=== PATIENT | male | born 1965 | race Caucasian/White ===

== ENCOUNTER 2017-02-07 02:45 | Emergency (ER) | payer SELFPAY ==
[2017-02-07] MEDS ORDERED: Morphine 4 MG/ML Syringe IVPUSH PRN (03:03)
[2017-02-07] MEDS ORDERED: Nitroglycerin 0.4 MG Tab.SL SL PRN (03:03)
[2017-02-07] MEDS ORDERED: Sodium Chloride 0.9% 10 ML Syringe FLUSH PRN (03:03)
--- NOTE | 2017-02-07 03:10 | EDM.PDOC ---
ED HISTORY OF PRESENT ILLNESS - General Chief Complaint: Chest Pain Stated Complaint: CHEST PAINS Time Seen by Provider: 02/07/17 03:02 Source: Reports: Patient, RN notes reviewed History Limitations: Reports: No limitations - History of Present Illness INITIAL COMMENTS - FREE TEXT/NARRATIVE: 51-year-old gentleman presents emergency department day complaint of chest pain , he's had chest pain for several days does come and go pain is definitely worse when he exerts himself does get relieved by rest pain can come on at rest does have shortness of breath, positive for tobacco use positive for family history of father with coronary artery disease in his 70s - Related Data Allergies/ADRs: Allergies Allergy/AdvReac Type Severity Reaction Status Date / Time No Known Allergies Allergy Verified 02/07/17 03:03 Home Meds: Home Meds NK [No Known Home Meds] 02/07/17 [History] Past Medical History - Past Health History Medical/Surgical History: Denies Medical/Surgical History Social & Family History - Family History Cardiac: Reports: CAD - Tobacco Use Smoking Status *Q: Current Some Day Smoker ED ROS GENERAL - Review of Systems Review Of Systems: See Below Constitutional: Reports: no symptoms. Denies: diaphoresis HEENT: Reports: No symptoms Respiratory: Reports: Shortness of Breath Cardiovascular: Reports: Chest pain, Dyspnea on exertion GI/Abdominal: Reports: No symptoms. Denies: Nausea, Vomiting : Reports: no symptoms Musculoskeletal: Reports: no symptoms Skin: Reports: no symptoms Neurological: Reports: No Symptoms ED EXAM, GENERAL - Physical Exam Exam: See Below Free Text/Narrative:: General: Male, not in any distress, alert and oriented x3 HEENT: head is atraumatic normocephalic, eyes pupils equal round reactive to light, sclera clear no conjunctivitis appreciated. Ears tympanic membranes clear and marie landmarks and light reflex are present bilaterally canals are clear. Nose no septal deviation, nares are clear, no blood present. Mouth mucosa is moist and pink no erythema or exudate noted in soft palate, tongue is midline uvula is midline, dentition is intact. Neck: Supple no thyromegaly no tracheal deviation. Nodes: Cervical nodes subclavicular nodes nontender no palpable lymphadenopathy noted. Lungs: clear to auscultation bilaterally with symmetrical respirations, no adventitious noise appreciated. CV: Regular rate and rhythm S1 and S2 appreciated no murmurs rubs or gallops noted. Tender to palpation on the anterior chest Abdomen: Soft, nontender, no palpable masses or organomegaly appreciated, no distention no guarding bowel sounds are present, . Neuro: Cranial nerves II through XII grossly intact Skin: Warm and dry, intact Extremities: No lower extremity edema appreciated, . Course - Vital Signs Last Recorded V/S: Last Vital Signs Temp 97.3 F 02/07/17 02:57 Pulse 78 02/07/17 05:19 Resp 15 02/07/17 05:19 BP 134/95 H 02/07/17 05:19 Pulse Ox 97 02/07/17 05:19 - Orders/Labs/Meds Orders: Active Orders 24 hr Category Date Time Status Cardiac Monitoring [RC] .As Directed Care 02/07/17 03:04 Active EKG Documentation Completion [RC] ASDIRECTED Care 02/07/17 03:05 Active Peripheral IV Care [RC] . DIRECTED Care 02/07/17 03:05 Active Chest 1V Frontal [CR] Stat Exams 02/07/17 03:05 Taken Morphine Med 02/07/17 03:03 Active See Dose Instructions IVPUSH ASDIRECTED PRN Nitroglycerin [Nitrostat] Med 02/07/17 03:03 Active 0.4 mg SL Q5M PRN Sodium Chloride 0.9% [Saline Flush] Med 02/07/17 03:03 Active 10 ml FLUSH ASDIRECTED PRN ED Pain Medications Reflex [OM.PC] Stat Oth 02/07/17 03:04 Ordered Peripheral IV Insertion Adult [OM.PC] Stat Oth 02/07/17 03:03 Ordered Saline Lock Insert [OM.PC] Stat Oth 02/07/17 03:03 Ordered EKG 12 Lead [EK] Stat Ther 02/07/17 03:04 Ordered Medication Orders Morphine Sulfate (Morphine) 0 mg IVPUSH ASDIRECTED PRN PRN Reason: Pain Stop: 02/08/17 03:05 Last Admin: 02/07/17 03:10 Dose: 4 mg Nitroglycerin (Nitrostat) 0.4 mg SL Q5M PRN PRN Reason: Chest Pain Stop: 02/08/17 03:04 Sodium Chloride (Saline Flush) 10 ml FLUSH ASDIRECTED PRN PRN Reason: Keep Vein Open Last Admin: 02/07/17 03:13 Dose: 10 ml Labs: Laboratory Tests 02/07/17 02/07/17 02/07/17 Range/Units 03:03 03:03 03:03 WBC 10.6 (4.5-11.0) K/uL RBC 5.43 (4.30-5.90) M/uL Hgb 16.1 H (12.0-15.0) g/dL Hct 48.7 (40.0-54.0) % MCV 90 (80-98) fL MCH 30 (27-31) pg MCHC 33 (32-36) % Plt Count 271 (150-400) K/uL Neut % (Auto) 61 (36-66) % Lymph % (Auto) 24 (24-44) % Owsley % (Auto) 11 H (2-6) % Eos % (Auto) 3 (2-4) % Baso % (Auto) 1 (0-1) % PT 9.8 (9.5-12.0) sec INR 0.93 (0.80-1.20) APTT 25.4 L (27.0-36.0) sec Sodium 137 L (140-148) mmol/L Potassium 3.9 (3.6-5.2) mmol/L Chloride 104 (100-108) mmol/L Carbon Dioxide 30 (21-32) mmol/L Anion Gap 6.9 (5.0-14.0) mmol/L BUN 19 H (7-18) mg/dL Creatinine 1.3 (0.8-1.3) mg/dL Est Cr Clr Drug Dosing 70.97 mL/min Estimated GFR (MDRD) 59 L (>60) Glucose 98 (74-106) mg/dL Calcium 8.4 L (8.5-10.1) mg/dL Total Bilirubin 0.4 (0.2-1.0) mg/dL AST 19 (15-37) U/L ALT 54 (12-78) U/L Alkaline Phosphatase 73 (46-116) U/L Troponin I < 0.017 (0.000-0.056) ng/mL Total Protein 6.7 (6.4-8.2) g/dL Albumin 3.4 (3.4-5.0) g/dL Globulin 3.3 (2.3-3.5) g/dL Albumin/Globulin Ratio 1.0 L (1.2-2.2) 02/07/17 Range/Units 05:16 WBC (4.5-11.0) K/uL RBC (4.30-5.90) M/uL Hgb (12.0-15.0) g/dL Hct (40.0-54.0) % MCV (80-98) fL MCH (27-31) pg MCHC (32-36) % Plt Count (150-400) K/uL Neut % (Auto) (36-66) % Lymph % (Auto) (24-44) % Ows[place] % (Auto) (2-6) % Eos % (Auto) (2-4) % Baso % (Auto) (0-1) % PT (9.5-12.0) sec INR (0.80-1.20) APTT (27.0-36.0) sec Sodium (140-148) mmol/L Potassium (3.6-5.2) mmol/L Chloride (100-108) mmol/L Carbon Dioxide (21-32) mmol/L Anion Gap (5.0-14.0) mmol/L BUN (7-18) mg/dL Creatinine (0.8-1.3) mg/dL Est Cr Clr Drug Dosing mL/min Estimated GFR (MDRD) (>60) Glucose (74-106) mg/dL Calcium (8.5-10.1) mg/dL Total Bilirubin (0.2-1.0) mg/dL AST (15-37) U/L ALT (12-78) U/L Alkaline Phosphatase (46-116) U/L Troponin I < 0.017 (0.000-0.056) ng/mL Total Protein (6.4-8.2) g/dL Albumin (3.4-5.0) g/dL Globulin (2.3-3.5) g/dL Albumin/Globulin Ratio (1.2-2.2) Meds: Medications Generic Name Dose Route Start Last Admin Trade Name Freq PRN Reason Stop Dose Admin Morphine Sulfate 0 mg 02/07/17 03:03 02/07/17 03:10 Morphine IVPUSH 02/08/17 03:05 4 mg ASDIRECTED PRN Administration Pain Nitroglycerin 0.4 mg 02/07/17 03:03 Nitrostat SL 02/08/17 03:04 Q5M PRN Chest Pain Sodium Chloride 10 ml 02/07/17 03:03 02/07/17 03:13 Saline Flush FLUSH 10 ml ASDIRECTED PRN Administration Keep Vein Open Departure - Departure Time of Disposition: 06:06 Disposition: Home, Self-Care 01 Condition: good Clinical Impression: Acute chest wall pain Forms: ED Department Discharge Additional Instructions: Use ibuprofen as needed for pain control, Please followup with your primary care provider in 3-5 days if not better, please call return to the emergency department with worsening of symptoms. - My Orders Last 24 Hours: My Active Orders 02/07/17 03:03 Morphine See Dose Instructions IVPUSH ASDIRECTED PRN Nitroglycerin [Nitrostat] 0.4 mg SL Q5M PRN Sodium Chloride 0.9% [Saline Flush] 10 ml FLUSH ASDIRECTED PRN Peripheral IV Insertion Adult [OM.PC] Stat Saline Lock Insert [OM.PC] Stat 02/07/17 03:04 Cardiac Monitoring [RC] .As Directed ED Pain Medications Reflex [OM.PC] Stat EKG 12 Lead [EK] Stat 02/07/17 03:05 EKG Documentation Completion [RC] ASDIRECTED Peripheral IV Care [RC] . DIRECTED Chest 1V Frontal [CR] Stat - Assessment/Plan Last 24 Hours: My Active Orders 02/07/17 03:03 Morphine See Dose Instructions IVPUSH ASDIRECTED PRN Nitroglycerin [Nitrostat] 0.4 mg SL Q5M PRN Sodium Chloride 0.9% [Saline Flush] 10 ml FLUSH ASDIRECTED PRN Peripheral IV Insertion Adult [OM.PC] Stat Saline Lock Insert [OM.PC] Stat 02/07/17 03:04 Cardiac Monitoring [RC] .As Directed ED Pain Medications Reflex [OM.PC] Stat EKG 12 Lead [EK] Stat 02/07/17 03:05 EKG Documentation Completion [RC] ASDIRECTED Peripheral IV Care [RC] . DIRECTED Chest 1V Frontal [CR] Stat Plan: Assessment Acuity = acute Site and laterality = chest pain Etiology = unclear etiology suspicious for muscle skeletal chest wall Manifestations = none Location of injury = home Lab values = CBC within normal limits, sodium low at 137 consistent hyponatremia , troponin was negative x2 to hours apart EKG demonstrates a normal sinus rhythm I don't appreciate any significant ST changes possibly 0.5 ST elevation in the chest leads however difficult to appreciate. Chest x-ray I did review films myself I cannot appreciate any acute process, the official read from radiology is pending Plan He had immediate pain relief given morphine during the observation period he had no recurrence of chest pain, he did admit to doing some raking and leak belonging over the last couple days. Rest and followup with primary care provider next 3-5 days for evaluation return to the emergency department if any new chest pain develops. Patient was in agreement with the plan all questions were answered, they were instructed to return to the emergency department or call for worsening symptoms. This note was dictated using [employer] voice recognition software please call with any questions.
[2017-02-07 05:21] VITALS: BP 134/95
--- NOTE | 2017-02-07 09:16 | CR ---
Chest 1V Frontal FINDINGS: The heart and vascular structures are normal in appearance. No infiltrates or effusions ar e demonstrated. The skeletal structures are unremarkable. IMPRESSION: Negative exam.
== END 2017-02-07 06:14 | disposition home or self-care (01) ==
LOC: JP.ED 02:45
DX: R07.89 Other chest pain (principal); F17.210 Nicotine dependence, cigarettes, uncomplicated
CPT/HCPCS: 36415; 71010; 80053; 84484; 85025; 85610; 85730; 96374; 99285; J2270; J7050; 93010; 99284